=== PATIENT | female | born 1995 ===

== ENCOUNTER 2017-07-30 13:54 | Inpatient (IN) ==
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
[2017-07-30] MEDS ORDERED: *HR* HYDROcodone/Acet 5/325 mg TABLET PO ONE (15:12)
[2017-07-30] MEDS ORDERED: *HR* HYDROmorphone (PF) 1 MG/ML SYRINGE IM ONE (16:48)
[2017-07-30] MEDS ORDERED: Ringers Solution, Lactated 1,000 ML IVC SCH (17:45)
[2017-07-30] MEDS ORDERED: *HR* HYDROmorphone (PF) 1 MG/ML SYRINGE IVP ONE (19:25)
[2017-07-30] MEDS ORDERED: *HR* OxyCODONE Immed Rel 5 MG TABLET PO PRN (20:14)
[2017-07-30] MEDS ORDERED: Naloxone 0.4 MG/ML INJ IVP PRN (20:14)
[2017-07-30] MEDS ORDERED: Ondansetron 4 MG/2 ML VIAL IVP PRN (20:14)
[2017-07-30] MEDS ORDERED: Acetaminophen 325 MG TABLET PO PRN (20:14)
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
[2017-07-30] MEDS: *HR* Morphine 2 MG/ML SYRINGE IVP PRN (23:43)
[2017-07-31] MEDS: *HR* OxyCODONE Immed Rel 5 MG TABLET PO PRN ×2 (00:48→07:29)
[2017-07-31 01:28] LABS: Basophils # 0.1 K/mcL (0.0-0.2); Basophils % 0.3 %; Eosinophils % 0.2 %; Hematocrit 37.5 % (35.3-44.9); Hemoglobin 12.7 g/dL (11.5-15.4); Immature Granulocytes % 0.5 % (0-4); Lymphocytes # 2.9 K/mcL (0.6-4.6); Lymphocytes % 17.9 %; Mean Corpuscular HGB Conc 33.9 g/dL (31.6-35.5); Mean Corpuscular Hemoglobin 28.7 pg (28.0-33.3); Mean Corpuscular Volume 84.8 fL (83.0-100.0); Mean Platelet Volume 11.8 fL (9.4-12.4); Monocytes # 0.8 K/mcL (0.0-1.3); Monocytes % 4.8 %; Neutrophils # 12.4 K/mcL (1.6-8.9); Platelet Count 243 K/mcL (140-400); Red Blood Count 4.42 M/mcL (3.82-4.97); Red Cell Distribution Width 12.7 % (11.5-14.5); Segmented Neutrophils % 76.3 %
[2017-07-31 01:35] LABS: BUN/Creatinine Ratio 17 (6-26); Blood Urea Nitrogen 12 mg/dL (7-20); Carbon Dioxide 19 mEq/L (19-29); Chloride 107 mEq/L (98-109); INR 1.2; Potassium 4.2 mEq/L (3.5-4.5); Prothrombin Time 12.8 Seconds (9.4-12.1); Sodium 137 mEq/L (136-145); eGFR For African Americans > 60 (> 60)
[2017-07-31 01:36] LABS: Calcium 9.1 mg/dL (8.6-10.8); Glucose 131 mg/dL (70-99); Osmolality,Calculated 286 (280-300); eGFR For Non-African Americans > 60 (> 60)
[2017-07-31 01:37] LABS: Activated Partial Thrombo Time 25.8 Seconds (26.0-36.0)
[2017-07-31] MEDS ORDERED: *HR* HYDROmorphone (PF) 1 MG/ML SYRINGE IVP ONE ×2 (03:16→20:28)
[2017-07-31] MEDS: Ringers Solution, Lactated 1,000 ML IVC SCH ×2 (04:38→04:41)
[2017-07-31] MEDS: *HR* Morphine 2 MG/ML SYRINGE IVP PRN (04:41)
[2017-07-31] MEDS ORDERED: *HR* Enoxaparin 40 MG/0.4 ML SYRINGE SQ SCH (06:00)
--- NOTE | 2017-07-31 07:13 | Anesthesia Evaluation PreOp ---
Date of Encounter: 07/31/17 Time of Encounter: 07:11 - Past History Planned Operation: ORIF right talus fx Cardiac History: Denies any Significant Hx Pulmonary History: Denies Any Significant HX LAY BROTHER History: Denies Any Significant HX Other Medical History: Other (morbid obesity) Anesthesia History: No Prior Anesthetic Complications, Past Anesthesia : No Test: Negative Alcohol Use: occasionally Drug use: none Medications and Allergies Levonorgestrel-Ethin Estradiol [[place]-28 Tablet] 1 each PO DAILY 07/30/17 [ History] 3 Allergy/AdvReac Type Severity Reaction Status Date / Time No Known Allergies Allergy Verified 10/03/16 14:49 - Meds/Allergy Pre-op Review Medications Reviewed: Yes Allergies Reviewed: Yes Beta Blockers on Current Med List: No Anesthesia Results - Labs 07/31/17 01:15 07/31/17 01:15 Anesthesia Exam Selected Entries 07/31/17 04:11 Temperature 98 F Pulse Rate 87 Respiratory Rate 16 Blood Pressure 110/63 O2 Sat by Pulse Oximetry 99 Weight: 126kg NPO (# of Hours): 8 - HEENT Pupil (Motor): EOMI Mallampati: II Teeth: Normal Oral Opening: Greater than 3 - LAY BROTHER LOC: Oriented LAY BROTHER Motor: Normal RUE, Normal LUE, Normal RLE, Normal LLE, Normal Face LAY BROTHER Sensory: Normal: RUE, LUE, RLE, LLE, Face - Cardiac Rhythm: Regular Murmur: None - Pulmonary Breath Sounds: bilateral Clear Respiratory Effort: Symmetrical Anesthesia Assess/Plan ASA Score: 2 (morbid obesity) Modified [place] Scale for Level of Consciousness: Cooperative, oriented, and tranquil Anesthetic Plan: General Monitoring Plan: Standard Monitors Recovery Plan: PACU (discussed GA/Popliteal block, patient agrees to proceed)
[2017-07-31] MEDS ORDERED: *HR* Succinylcholine 200 MG/10 ML VIAL IVP ONE (07:26)
[2017-07-31] MEDS ORDERED: *HR* Midazolam HCl 2 MG/2 ML VIAL ONE (07:26)
[2017-07-31] MEDS ORDERED: *HR* Propofol 200 MG/20 ML VIAL IVP ONE (07:26)
[2017-07-31] MEDS ORDERED: *HR* FentaNYL (PF) 100 MCG/2 ML VIAL ONE (07:26)
[2017-07-31] MEDS ORDERED: Dexamethasone 4 MG/ML VIAL ONE (07:26)
[2017-07-31] MEDS ORDERED: Ringers Solution, Lactated 1,000 ML ONE (07:50)
[2017-07-31] MEDS ORDERED: Lidocaine/EPI 1:100k 1% 20 ML VIAL ONE (07:50)
[2017-07-31] MEDS ORDERED: ROPIVACAINE HCL/PF 0.5% 30 ML VIAL ONE (07:51)
[2017-07-31] MEDS ORDERED: Bupivacaine/Clonidine Syringe 1 EACH SYRINGE ONE (07:51)
--- NOTE | 2017-07-31 08:41 | Anesthesia Procedures ---
Date of Encounter: 07/31/17 Time of Encounter: 07:52 Procedures: Anesthesia - Nerve Block Procedure Date: 07/31/17 Time: 07:52 Surgical Procedure: ORIF right ankle Checklist: Correct Patient Identifier, Correct procedure, History checked Correct side: Right Blood Thinner: No Monitor Applied: BP, Pulse Oximetry Sedation: Versed (mg): 4 Sedation: Fentanyl (mcg): 50 Indication: Post Op Analgesia Block Type: Popliteal, Other (saphenous) Catheter placed: No Sterile Technique: Yes Ultrasound used: Yes Anatomy identified: Yes Visual spread of Local: Yes Neuro Stimulation: No Blood on Needle Aspiration: No Smooth Injection of Local: Yes Pain with Injection of Local: No Prep: Chlorhexadine Needle: 21 x 100 mm Stimuplex Local: 0.25% Bupivicaine w/Clonidine 20 mcg/cc (40ml), Ropivacaine (30ml for popiteal) Volume (cc): 70ml Number of Attempts: 1 Complications: None/effective block Vitals: vss though out, evan well, block per request of surgeon.
[2017-07-31] MEDS ORDERED: *HR* Promethazine 25 MG/ML VIAL IVP PRN ×2 (08:42→13:58)
[2017-07-31] MEDS ORDERED: Ondansetron 4 MG/2 ML VIAL IVP ONE (08:42)
[2017-07-31] MEDS ORDERED: *HR* HYDROmorphone (PF) 1 MG/ML SYRINGE IVP PRN (08:42)
[2017-07-31] MEDS ORDERED: Ondansetron 4 MG/2 ML VIAL ONE (08:45)
[2017-07-31] MEDS ORDERED: Ketorolac 30 MG/ML VIAL ONE (09:02)
[2017-07-31] MEDS ORDERED: *HR* Morphine 10 MG/ML VIAL ONE (11:43)
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
[2017-07-31] MEDS ORDERED: Acetaminophen 325 MG TABLET PO PRN (12:12)
[2017-07-31] MEDS ORDERED: Naloxone 0.4 MG/ML INJ IVP PRN (12:12)
[2017-07-31] MEDS ORDERED: Ondansetron 4 MG/2 ML VIAL IVP PRN (12:12)
[2017-07-31] MEDS ORDERED: *HR* OxyCODONE Immed Rel 5 MG TABLET PO PRN (12:12)
[2017-07-31] MEDS ORDERED: *HR* Morphine 2 MG/ML SYRINGE IVP PRN (12:12)
--- NOTE | 2017-07-31 12:25 | Anesthesia Evaluation Post Op ---
Date of Encounter: 07/31/17 Time of Encounter: 12:25 - Vital Signs Vital Signs: Selected Entries 07/31/17 12:16 Temperature 98.6 F Pulse Rate 113 Respiratory Rate 16 Blood Pressure 118/84 O2 Sat by Pulse Oximetry 97 Oxygen Flow Rate (LPM) 3 - Lungs Lungs: Clear Ascult./Percussion - Airway Airway: Non-obstructed - Cardiovascular Regular Rate - Mental Status Mental Status: Alert & Oriented, Answers Appropriately - Pain Pain Scale: 0 Pain Scale used: Numeric (1 - 10) - Nausea Vomiting Nausea Vomiting: Not Present - Hydration Hydration: Ice chips, Able to void - Discharge PostOp Status: Transfer Patient to floor
[2017-07-31] MEDS: CeFAZolin Syr 3,000MG/30 ML 3,000 MG/30 ML SYRINGE IVPB SCH (16:24)
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
[2017-08-01] MEDS: CeFAZolin Syr 3,000MG/30 ML 3,000 MG/30 ML SYRINGE IVPB SCH (00:39)
[2017-08-01] MEDS: *HR* OxyCODONE Immed Rel 5 MG TABLET PO PRN ×3 (00:53→12:00)
[2017-08-01 06:59] VITALS: BP 109/64
--- NOTE | 2017-08-01 08:26 | Discharge Summary ---
Date of Encounter: 08/01/17 Time of Encounter: 08:15 - Discharge Diagnosis (1) Fracture of neck of right talus Priority: Primary Status: Acute Qualifiers: Encounter type: initial encounter Fracture type: closed Fracture alignment: displaced Qualified Code(s): S92.111A - Displaced fracture of neck of right talus, initial encounter for closed fracture - Discharge Medications Prescriptions: Chair, Shower [SHOWER CHAIR] 1 each .ROUTE DAILY #1 each Miscellaneous Medical Supply [Attachment Set] 1 each MC DAILY 120 Days #1 miscell Miscellaneous Medical Supply [Attachment Set] 1 each MC DAILY 120 Days #1 miscell Miscellaneous Medical Supply [Attachment Set] 1 each MC DAILY 120 Days #1 miscell Miscellaneous Medical Supply [Attachment Set] 1 each MC DAILY #1 miscell Ondansetron ODT [Zofran ODT] 4 mg SL Q8HR PRN #20 tab.rapdis PRN Reason: Nausea Oxycodone HCl/Acetaminophen [Percocet 5-325 mg Tablet] 1 each PO Q4H PRN #28 tablet PRN Reason: Pain Rivaroxaban [Xarelto] 10 mg PO DAILY #20 tablet Home Medications: Levonorgestrel-Ethin Estradiol [[place]-28 Tablet] 1 each PO DAILY 07/30/17 [ History] Chair, Shower [SHOWER CHAIR] 1 each .ROUTE DAILY #1 each 08/01/17 [Rx] Miscellaneous Medical Supply [Attachment Set] 1 each MC DAILY #1 miscell [Rx] Miscellaneous Medical Supply [Attachment Set] 1 each MC DAILY 120 Days #1 miscell 08/01/17 [Rx] Miscellaneous Medical Supply [Attachment Set] 1 each MC DAILY 120 Days #1 miscell 08/01/17 [Rx] Miscellaneous Medical Supply [Attachment Set] 1 each MC DAILY 120 Days #1 miscell 08/01/17 [Rx] Ondansetron ODT [Zofran ODT] 4 mg SL Q8HR PRN #20 tab.rapdis 08/01/17 [Rx] Oxycodone HCl/Acetaminophen [Percocet 5-325 mg Tablet] 1 each PO Q4H PRN #28 tablet 08/01/17 [Rx] Rivaroxaban [Xarelto] 10 mg PO DAILY #20 tablet 08/01/17 [Rx] Allergies/Adverse Reactions: 3 Allergy/AdvReac Type Severity Reaction Status Date / Time No Known Allergies Allergy Verified 10/03/16 14:49 Procedures and tests throughout hospitalization: ORIF closed right foot displaced talus neck fracture - Impressions ITS Impressions Fluoroscopy 07/31/17 00:00 IMPRESSION: Intraprocedural fluoroscopic spot images as above. See separate procedure report for more information. D/ /31/2017 12:47:33 Francisco J Hu MD / herman Interpreting Provider: Francisco J Hu MD Foot X-Ray 07/31/17 00:00 IMPRESSION: Intraprocedural fluoroscopic spot images as above. See separate procedure report for more information. D/ /31/2017 12:47:33 Francisco J Hu MD / herman Interpreting Provider: Francisco J Hu MD Date of admission: 07/30/17 21:58 Primary care physician: Lalit Schuster, Consults: 07/31/17 12:58 Consult to Physical Therapy [CONS] Routine Comment: Evaluate, develop and implement POC Reason for Consult: s/p ORIF right talar neck fracture--non-wb right LE assistive device, transfers, plan d/c home tomorrow Discharging clinician: Cole Torrez Anticipated date of discharge: 08/01/17 - Patient Status Disposition: Home Health Service Condition: Good Overall status at discharge: patient is progressing back to baseline - Ambulatory Orders Ambulatory Orders: Misc. Order2 Time Frame: 3 Months, Facility: [facility] [place], Location: Home Health Services - Discharge Instructions Follow Up With: Lalit Schuster DO [Primary Care Provider] - Cole Torrez DPM [Partnered Physician] - Additional Instructions: remain non-weight bearing to the right lower extremity using assistive devices. Leave bandagesclean, dry, and intact. May loosen outer DAYAN bandages around the posterior splint as needed. Ice and elevate right lower extremity. Incentive spirometry. Prescriptions on chart for percocet for pain as prescribed and as needed, Zofran for nausea, Xarelto to for blood clot prophylaxis. Prescriptions for walker, roll about knee scooter and wheelchair, shower chair, portable toilet chair. - Diet and Activity Activity: other (non-weight bearing right foot using assistive device) Diet: advance to your usual diet, regular diet - Hospital Course Hospital course: Ms. Patel is a 22 year old female - Time Spent with Patient Total time spent providing and/or coordinating discharge services: - VTE Documentation of Mechanical Device: Intermittent pneumatic compression device
[2017-08-01] MEDS ORDERED: *HR* Rivaroxaban 10 MG TABLET PO SCH (09:00)
--- NOTE | 2017-08-01 09:39 | Podiatry Progress Note ---
Date of Encounter: 08/01/17 Time of Encounter: 08:15 - Assessment and Plan (1) Fracture of neck of right talus Current Visit: Yes Status: Acute reviewed with patient her surgical procedure and findings. discussed course of recovery. c/w non-weight bearing right LE. pain is controlled. nurse sent message to social service worker to contact them to arrange home health service. Ice and elevate. Pain is controlled. From the standpoint of her right foot she is stable for discharge and follow up with me next week. Qualifiers: Encounter type: initial encounter Fracture type: closed Fracture alignment: displaced Qualified Code(s): S92.111A - Displaced fracture of neck of right talus, initial encounter for closed fracture Subjective Interval history: POD #1 s/p ORIF right displaced talus neck fracture. Says her pain is controlled. denies f/c/n/v/sob/cp/calf pain. She has been staying off her foot. She was seen by physical therapy and has a walker in room she was given for use upon discharge. Patient states she wants to go home. Objective - Vital Signs Vital Signs: Vital Signs Temp Pulse Resp BP Pulse Ox 08/01/17 06:29 98.7 F 102 18 109/64 99 08/01/17 05:27 99.0 F 108 16 107/69 98 08/01/17 00:03 98.5 F 100 18 102/66 96 07/31/17 20:35 98.7 F 109 18 118/78 94 07/31/17 15:31 98.4 F 86 16 143/82 96 07/31/17 14:41 98.1 F 87 14 150/87 95 07/31/17 13:43 98.4 F 93 14 131/75 99 07/31/17 12:55 98.9 F 106 14 134/77 95 07/31/17 12:26 98.5 F 104 12 149/77 95 07/31/17 12:16 98.6 F 113 16 118/84 97 07/31/17 12:06 107 16 142/90 95 07/31/17 11:56 108 18 135/73 95 07/31/17 11:46 98.6 F 103 18 144/82 94 Intake and Output 07/31/17 08/01/17 08/01/17 23:59 07:59 15:59 Intake Total 30 / 30 Balance 30 / 30 Intake: IV Fluids Ancef Syringe 3,000 MG/30 ML 3, 30 / 30 000 mg In 30 ml @ 200 mls/hr IVPB Q8HR [facility] Rx#:[id number] Other: # Voids 1 1 - Exam Exam: well developed and nourished female in no acute distress Vasc: CFT < 3 sec x 5 digits right foot. Derm: posterior splint clean, dry, and intact. Musc: can flex and extend digits of the right foot. no calf pain b/l with squeeze. Neuro: sensation intact to light touch of the digits. - Lab Result Diagrams: 07/31/17 01:15 07/31/17 01:15 Labs: Abnormal lab results WBC 16.2 K/mcL (4.3-11.1) H 07/31/17 01:15 Neutrophils # 12.4 K/mcL (1.6-8.9) H 07/31/17 01:15 PT 12.8 Seconds (9.4-12.1) H 07/31/17 01:15 APTT 25.8 Seconds (26.0-36.0) L 07/31/17 01:15 Glucose 131 mg/dL (70-99) H 07/31/17 01:15 - VTE Documentation of Mechanical Device: Intermittent pneumatic compression device Consult Discharge Plan - Plan Additional Instructions: remain non-weight bearing to the right lower extremity using assistive devices. Leave bandagesclean, dry, and intact. May loosen outer DAYAN bandages around the posterior splint as needed. Ice and elevate right lower extremity. Incentive spirometry. Prescriptions on chart for percocet for pain as prescribed and as needed, Zofran for nausea, Xarelto to for blood clot prophylaxis. Prescriptions for walker, roll about knee scooter and wheelchair, shower chair, portable toilet chair. Referrals: Lalit Schuster DO [Primary Care Provider] - Cole Torrez DPM [Partnered Physician] - Prescriptions: Chair, Shower [SHOWER CHAIR] 1 each .ROUTE DAILY #1 each Miscellaneous Medical Supply [Attachment Set] 1 each MC DAILY 120 Days #1 miscell Miscellaneous Medical Supply [Attachment Set] 1 each MC DAILY 120 Days #1 miscell Miscellaneous Medical Supply [Attachment Set] 1 each MC DAILY 120 Days #1 miscell Miscellaneous Medical Supply [Attachment Set] 1 each MC DAILY #1 miscell Ondansetron ODT [Zofran ODT] 4 mg SL Q8HR PRN #20 tab.rapdis PRN Reason: Nausea Oxycodone HCl/Acetaminophen [Percocet 5-325 mg Tablet] 1 each PO Q4H PRN #28 tablet PRN Reason: Pain Rivaroxaban [Xarelto] 10 mg PO DAILY #20 tablet
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
== END 2017-08-01 15:38 | disposition home health service (06) | DRG 504 ==
LOC: 3NENU 13:54 → EMEROO 13:54 → 3NENU 22:37
PROVIDERS: ADMIT Internal Medicine Hematology & Oncology; ATTEND Family Medicine

== ENCOUNTER 2021-06-25 22:20 | Observation (INO) | END 2021-06-25 23:55 | disposition home or self-care (01) | LOC: 1NENULAB | PROVIDERS: ADMIT Advanced Practice Midwife; ATTEND Advanced Practice Midwife ==

== ENCOUNTER 2021-06-26 02:02 | Inpatient (IN) ==
[2021-06-26] MEDS ORDERED: *HR* Nalbuphine 10 MG/ML AMPUL IV PRN (02:05)
[2021-06-26] MEDS ORDERED: Naloxone 0.4 MG/ML INJ IVP PRN (02:05)
[2021-06-26] MEDS ORDERED: Famotidine 20 MG/2 ML VIAL IVP PRN (02:05)
[2021-06-26] MEDS ORDERED: Ondansetron 4 MG/2 ML VIAL IVP PRN (02:05)
[2021-06-26] MEDS ORDERED: Metoclopramide 10 MG/2 ML VIAL IVP PRN (02:05)
[2021-06-26] MEDS ORDERED: Lidocaine 1% 20 ML MDV INFILT PRN (02:05)
[2021-06-26] MEDS ORDERED: Ringers Solution, Lactated 1,000 ML IVC SCH (02:15)
[2021-06-26 03:06] LABS: Basophils % 0.2 %; Eosinophils # 0.1 K/mcL (0.0-0.6); Eosinophils % 0.4 %; Hematocrit 36.7 % (35.3-44.9); Hemoglobin 12.1 g/dL (11.5-15.4); Immature Granulocytes % 0.9 % (0-4); Lymphocytes # 3.1 K/mcL (0.6-4.6); Lymphocytes % 16.1 %; Mean Corpuscular Hemoglobin 29.2 pg (28.0-33.3); Mean Corpuscular Volume 88.4 fL (83.0-100.0); Mean Platelet Volume 12.7 fL (9.4-12.4); Monocytes # 1.2 K/mcL (0.0-1.3); Monocytes % 6.4 %; Neutrophils # 14.5 K/mcL (1.6-8.9); Platelet Count 162 K/mcL (140-400); Red Blood Count 4.15 M/mcL (3.82-4.97); Red Cell Distribution Width 14.7 % (11.5-14.5); White Blood Count 19.1 K/mcL (4.3-11.1)
[2021-06-26] MEDS ORDERED: EPHEDrine 50 MG/ML VIAL IVP PRN (03:07)
[2021-06-26] MEDS ORDERED: Epidural Premix (fent/bupiv) 110 ML EP ONE (03:12)
[2021-06-26] MEDS ORDERED: Epidural Premix (fent/bupiv) 110 ML EP SCH (03:15)
[2021-06-26 03:25] LABS: Amphetamine Screen,Urine Negative ng/mL (Cutoff=1000); Barbiturate Screen,Urine Negative ng/mL (Cutoff=200); Benzodiazepines Screen,Urine Negative ng/mL (Cutoff=200); Cannabinoid Screen,Urine Negative ng/mL (Cutoff = 50); Cocaine Screen,Urine Negative ng/mL (Cutoff= 300); Influenza A PCR Negative (Negative); Influenza B PCR Negative (Negative); Opiate Screen,Urine Negative ng/mL (Cutoff=300); Phencyclidine Screen,Urine Negative ng/mL (Cutoff=25); Resp. Syncytial Virus PCR Negative (Negative)
[2021-06-26 03:26] LABS: SARS-CoV-2 by PCR (In House) Negative (Negative)
[2021-06-26] MEDS ORDERED: Oxytocin 20 units/ LR 1000 mL 20 UNIT/1,000 ML BAG IVC ONE ×2 (07:34→11:02)
[2021-06-26] MEDS ORDERED: Rho Immune Globulin 1,500 UNIT SYRINGE IM PRN (11:50)
[2021-06-26] MEDS ORDERED: Ondansetron ODT 4 MG TAB.RAPDIS SL PRN (11:50)
[2021-06-26] MEDS ORDERED: Lanolin 7 G OINT...G. TP PRN (11:50)
[2021-06-26] MEDS ORDERED: Benzocaine/Menthol 56 GM AEROSOL SPRAY TP PRN (11:50)
[2021-06-26] MEDS ORDERED: Measles/Mumps/Rubella Vacc 0.5 ML VIAL SQ PRN (11:50)
[2021-06-26] MEDS ORDERED: Oxytocin 20 units/ LR 1000 mL 20 UNIT/1,000 ML BAG IVC SCH (11:50)
[2021-06-26] MEDS: Ibuprofen 600 MG TABLET PO SCH ×2 (13:06→22:51)
[2021-06-26] MEDS: Acetaminophen 325 MG TABLET PO SCH ×2 (13:06→22:51)
[2021-06-27] MEDS: Ibuprofen 600 MG TABLET PO SCH ×2 (05:35→14:45)
[2021-06-27] MEDS: Acetaminophen 325 MG TABLET PO SCH ×2 (05:35→14:44)
[2021-06-27 05:45] VITALS: O2SAT 97
[2021-06-27 07:25] LABS: Basophils % 0.2 %; Eosinophils # 0.1 K/mcL (0.0-0.6); Eosinophils % 0.6 %; Hematocrit 36.4 % (35.3-44.9); Hemoglobin 11.5 g/dL (11.5-15.4); Immature Granulocytes % 0.9 % (0-4); Immature Platelets 10.7 % (1.1-6.1); Lymphocytes # 2.1 K/mcL (0.6-4.6); Mean Corpuscular HGB Conc 31.6 g/dL (31.6-35.5); Mean Corpuscular Hemoglobin 28.5 pg (28.0-33.3); Mean Corpuscular Volume 90.3 fL (83.0-100.0); Mean Platelet Volume 13.1 fL (9.4-12.4); Monocytes # 0.8 K/mcL (0.0-1.3); Monocytes % 5.6 %; Neutrophils # 10.9 K/mcL (1.6-8.9); Platelet Count 139 K/mcL (140-400); Red Blood Count 4.03 M/mcL (3.82-4.97); Red Cell Distribution Width 14.8 % (11.5-14.5); Segmented Neutrophils % 77.7 %
[2021-06-27 08:10] VITALS: BP 113/72; PULSE 69; TEMP 98.3
[2021-06-27] MEDS ORDERED: Prenatal Vit/FA 1 EACH TABLET PO SCH (09:00)
== END 2021-06-27 19:10 | disposition home or self-care (01) | DRG 807 ==
LOC: 1NENULAB 02:02 → 1NENUOBS 11:49
PROVIDERS: ADMIT Student in an Organized Health Care Education/Training Program; ATTEND Student in an Organized Health Care Education/Training Program